=== PATIENT | female | born 1975 | race Caucasian/White ===

== ENCOUNTER → 2016-08-01 | Outpatient (CLI) | payer BC | LOC: MC.RAD 13:58 | DX: N63 Unspecified lump in breast (principal); D24.1 Benign neoplasm of right breast ==

== ENCOUNTER → 2018-03-14 | Outpatient (CLI) | payer BC | LOC: MC.RAD 07:33 | DX: Z12.31 Encounter for screening mammogram for malignant neoplasm of breast (principal) ==

== ENCOUNTER → 2020-05-12 | Outpatient (CLI) | payer BC | LOC: MC.RAD 07:39 | DX: Z12.31 Encounter for screening mammogram for malignant neoplasm of breast (principal) ==